=== PATIENT | female | born 1980 | race African-American/Black ===

== ENCOUNTER 2018-12-21 08:22 | Day surgery (SDC) | payer OTHER ==
[~2018-12-21 08:22] MED LIST: FENTANYL CITR 250 MCG/5 ML ONE; LIDOCAINE 2% MPF 5 ML VIAL ONE; MIDAZOLAM HCL 2 MG/2 ML INJ ONE; ONDANSETRON 4 MG/2 ML VIAL ONE; PROPOFOL 200 MG/20 ML VIAL IV ONE; ROCURONIUM 50 MG/5 ML VIAL IV ONE; dexAMETHasone 10 MG/ML VIAL ONE
--- OUTSIDE RECORDS SUMMARY | 2018-12-21 08:29 | XMS REPORT | Clinical Summary ---
:1980 Author Organization [facility] Address [address] [place] [address] Care Team Providers Name Role Phone Mitchel Leggett DO Primary Care Provider Allergies No Known Allergies Medications Medication Sig Dispensed Refills Start Date End Date Status lisinopril-hydrochlor Take 1 tablet 90 tablet 0 09/28/2018 Active othiazide by mouth (PRINZIDE,ZESTORETIC) daily. 10-12.5 mg per tabletIndications: Essential hypertension phentermine 30 MG Take 30 mg by 0 Active capsule mouth every morning. semaglutide (OZEMPIC) Inject 0.25 1.5 mL 0 11/20/2018 Active 0.25 mg or 0.5 mg(2 mg under the mg/1.5 mL) pen skin every 7 injectorIndications: days. BMI 32.0-32.9,adult diclofenac (VOLTAREN) Take one tab 30 tablet 0 11/20/2018 Active 75 MG EC po twice tabletIndications: daily As Sacroiliac joint needed back pain, Dextroscoliosis pain phentermine 37.5 MG Take 45 mg by 0 Discontinued capsule mouth every 8 morning. lisinopril-hydrochlor Take 1 tablet 45 tablet 0 01/19/2018 Discontinued othiazide by mouth 8 (PRINZIDE,ZESTORETIC) daily. 10-12.5 mg per tabletIndications: Uncontrolled hypertension lisinopril-hydrochlor Take 1 tablet 17 tablet 0 03/06/2018 Discontinued othiazide by mouth 8 (PRINZIDE,ZESTORETIC) daily. 10-12.5 mg per tabletIndications: Uncontrolled hypertension ISOtretinoin Take 40 mg by 0 Discontinued (MYORISAN) 40 MG mouth 2 (two) 9 capsule times a day. lisinopril-hydrochlor Take 1 tablet 90 tablet 0 03/23/2018 Discontinued othiazide by mouth 9 (PRINZIDE,ZESTORETIC) daily. 10-12.5 mg per tabletIndications: Essential hypertension fluconazole Take 1 tablet 1 tablet 0 04/23/2018 (DIFLUCAN) 150 MG (150 mg 8 tablet total) by mouth once for 1 dose. metroNIDAZOLE Take 1 tablet 14 tablet 0 04/23/2018 (FLAGYL) 500 MG (500 mg 8 tablet total) by mouth 2 (two) times a day for 7 days. gabapentin Take 1 30 capsule 0 04/24/2018 (NEURONTIN) 300 mg capsule (300 9 capsuleIndications: mg total) by Dextroscoliosis, mouth nightly Sacroiliac joint for 30 days. pain, Muscle spasm diclofenac (VOLTAREN) Take 1 tablet 60 tablet 0 05/22/2018 Discontinued 75 MG EC (75 mg total) 9 tabletIndications: by mouth 2 Dextroscoliosis (two) times a day. lisinopril-hydrochlor Take 1 tablet 90 tablet 0 05/22/2018 Discontinued othiazide by mouth 9 (PRINZIDE,ZESTORETIC) daily. 10-12.5 mg per tabletIndications: Essential hypertension ibuprofen 1 tablet take 0 03/26/2018 Discontinued (ADVIL,MOTRIN) 600 MG as directed. 9 tablet metroNIDAZOLE Take 1 tablet 14 tablet 0 05/31/2018 Discontinued (FLAGYL) 500 MG (500 mg 9 tablet total) by mouth 2 (two) times a day for 7 days. fluconazole Take 1 tablet 1 tablet 6 05/31/2018 Discontinued (DIFLUCAN) 150 MG (150 mg 9 tablet total) by mouth once for 1 dose. fluconazole Take 1 tablet 1 tablet 6 06/20/2018 (DIFLUCAN) 150 MG (150 mg 9 tablet total) by mouth once for 1 dose. metroNIDAZOLE Take 1 tablet 14 tablet 0 06/20/2018 (FLAGYL) 500 MG (500 mg 9 tablet total) by mouth 2 (two) times a day for 7 days. phentermine 15 MG Take 1 30 capsule 0 06/29/2018 Discontinued capsuleIndications: capsule (15 9 BMI 35.0-35.9,adult mg total) by mouth every morning for 30 days. phentermine 15 MG Take 1 30 capsule 0 07/27/2018 Discontinued capsuleIndications: capsule (15 9 BMI 35.0-35.9,adult mg total) by mouth every morning for 30 days. lisinopril-hydrochlor Take 1 tablet 90 tablet 0 08/23/2018 Discontinued othiazide by mouth 9 (PRINZIDE,ZESTORETIC) daily. 10-12.5 mg per tabletIndications: Essential hypertension phentermine 15 MG Take 1 30 capsule 0 08/23/2018 capsuleIndications: capsule (15 9 BMI 33.0-33.9,adult mg total) by mouth every morning for 30 days. phentermine 15 MG Take 15 mg by 0 Discontinued capsule mouth every 9 morning. phentermine 15 MG Take 1 8 capsule 0 09/28/2018 Discontinued capsuleIndications: capsule (15 9 BMI 33.0-33.9,adult mg total) by mouth every morning for 8 days. phentermine 15 MG Take 1 8 capsule 0 09/28/2018 Discontinued capsuleIndications: capsule (15 9 BMI 33.0-33.9,adult mg total) by mouth every morning for 8 days. phentermine 30 MG Take 1 30 capsule 0 10/05/2018 capsuleIndications: capsule (30 9 BMI 32.0-32.9,adult mg total) by mouth every morning for 30 days. metroNIDAZOLE Take 1 tablet 14 tablet 0 10/19/2018 (FLAGYL) 500 MG (500 mg 9 tablet total) by mouth 2 (two) times a day for 7 days. metroNIDAZOLE Take 1 tablet 14 tablet 6 11/07/2018 (FLAGYL) 500 MG (500 mg 9 tabletIndications: total) by Acute vaginitis mouth 2 (two) times a day for 7 days. fluconazole Take 1 tablet 2 tablet 6 11/07/2018 (DIFLUCAN) 150 MG (150 mg 9 tabletIndications: total) by Acute vaginitis mouth once for 1 dose. Hospital, Clinic, or Other Ordered Dose Route Frequency Start Date End Date Status Facility Administered Medication keTOROlac (TORadol) 30 mg IM once 04/24/2018 04/24/2018 Ended injection 30 mgIndications: Sacroiliac joint pain, Muscle spasm keTOROlac (TORadol) 30 mg IM once 06/29/2018 06/29/2018 Ended injection 30 mgIndications: Sacroiliac joint pain keTOROlac (TORadol) 15 mg IM once 08/23/2018 08/23/2018 Ended injection 15 mgIndications: Muscle spasm keTOROlac (TORadol) 30 mg IM once 09/28/2018 09/28/2018 Ended injection 30 mgIndications: Sacroiliac joint pain, Dextroscoliosis keTOROlac (TORadol) 30 mg IM once 10/05/2018 10/05/2018 Ended injection 30 mgIndications: Sacroiliac joint pain keTOROlac (TORadol) 30 mg IM once 11/06/2018 11/06/2018 Ended injection 30 mgIndications: Sacroiliac joint pain, Dextroscoliosis keTOROlac (TORadol) 30 mg IM once 11/20/2018 11/20/2018 Ended injection 30 mgIndications: Sacroiliac joint pain, Dextroscoliosis Active Problems Problem Noted Date Family history of breast cancer 01/01/2018 Menorrhagia with regular cycle 01/01/2018 Stress incontinence of urine 01/01/2018 Acute vaginitis 04/26/2017 Encounters Date Type Specialty Care Team Description 11/20/2018 Office Visit Internal Medicine Mitchel Leggett, Sacroiliac joint pain (Primary Dx); DO Dextroscoliosis; BMI 32.0-32.9,adult 11/07/2018 Office Visit Obstetrics and Julianna Edwards Screen for STD ( sexually transmitted disease) (Primary Dx); Gynecology MD Emeka Dysuria; Acute vaginitis 11/06/2018 Office Visit Internal Medicine Mitchel Leggett, Uncontrolled hypertension (Primary Dx); DO Sacroiliac joint pain; Dextroscoliosis 11/06/2018 Orders Only Obstetrics and Journet, Pain with urination Gynecology TED Dumont (Primary Dx) 10/19/2018 Orders Only Obstetrics and Kassy Singh MD 10/05/2018 Office Visit Internal Medicine Leggett, Mitchel, Sacroiliac joint pain (Primary Dx); DO Essential hypertension; BMI 32.0-32.9,adult 09/28/2018 Office Visit Internal Medicine Leggett, Mitchel, Essential hypertension (Primary Dx); DO Sacroiliac joint pain; Dextroscoliosis; BMI 33.0-33.9,adult 08/23/2018 Office Visit Internal Medicine Leggett, Mitchel, Essential hypertension (Primary Dx); DO Muscle spasm; BMI 33.0-33.9,adult 07/27/2018 Office Visit Internal Medicine Mitchel Leggett, Uncontrolled hypertension (Primary Dx); DO BMI 35.0-35.9,adult 06/29/2018 Office Visit Internal Medicine Leggett, Mitchel, Sacroiliac joint pain (Primary Dx); DO Essential hypertension; BMI 35.0-35.9,adult 06/20/2018 Refill Obstetrics and Jerry, Julianna Gynecology MD Emeka 06/20/2018 Refill Obstetrics and Jerry, Julianna Gynecology MD Emeka 06/05/2018 Telephone Obstetrics and Nestornet, Gynecology Tim, BASE REMOVER 06/01/2018 Telephone Obstetrics and Jour[place], Gynecology Tim, BASE REMOVER 05/31/2018 Office Visit Obstetrics and Julianna Edwards Acute vaginitis ( Primary Dx); Gynecology MD Emeka Screen for STD (sexually transmitted disease) 05/30/2018 Telephone Obstetrics and [place], Gynecology Tim, BASE REMOVER 05/30/2018 Orders Only Obstetrics and Journet, Gynecology Tim, BASE REMOVER 05/22/2018 Office Visit Internal Medicine Mitchel Leggett, Essential hypertension (Primary Dx); DO Dextroscoliosis; Severe depression (HCC); BMI 38.0-38.9,adult 04/24/2018 Office Visit Internal Medicine Mitchel Leggett, Dextroscoliosis ( Primary Dx); DO Sacroiliac joint pain; Muscle spasm 04/23/2018 Orders Only Obstetrics and Julianna Edwards Gynecology MD Emeka 03/23/2018 Office Visit Internal Medicine Mitchel Leggett, Severe depression (HCC) (Primary Dx); DO Grief; Other fatigue; Essential hypertension; BMI 38.0-38.9,adult 03/13/2018 Hospital Radiology Julianna Edwards Family history of breast Encounter MD Emeka cancer 03/06/2018 Refill Internal Medicine Radha Cox MA Uncontrolled hypertension 03/06/2018 Telephone Family Medicine Mitchel Leggett DO 01/19/2018 Office Visit Internal Medicine Mitchel Leggett, LVH (left ventricular hypertrophy) (Primary Dx); DO Uncontrolled hypertension; Severe depression; BMI 39.0-39.9,adult 01/15/2018 Telephone Obstetrics and Caio, Gynecology TED Robert 01/05/2018 Orders Only Obstetrics and Lydia Maher Screen for STD ( sexually transmitted disease) (Primary Dx); Gynecology MD Lali Screening for HIV (human immunodeficiency virus) 01/05/2018 Telephone Obstetrics and Yeni Monique MA 01/01/2018 Office Visit Obstetrics Julianna Bradshaw Well woman exam ( Primary Dx); Gynecology MD Emeka Routine Papanicolaou smear; Encounter for screening for human papillomavirus (HPV); Family history of breast cancer; Menorrhagia with regular cycle; Elevated blood pressure reading; Stress incontinence of urine after 12/20/2017 Family History Medical History Relation Name Comments Stomach cancer Maternal Grandmother Breast cancer Mother Relation Name Status Comments Maternal Grandmother Mother Social History Tobacco Use Types Packs/Day Years Used Date Never Smoker Smokeless Tobacco: Never Used Alcohol Use Drinks/Week oz/Week Comments No Sex Assigned at Date Recorded Not on file Job Start Date Occupation Industry Not on file Not on file Not on file Travel History Travel Start Travel End No recent travel history available. Last Filed Vital Signs Vital Sign Reading Time Taken Blood Pressure 122/87 11/20/2018 12:39 PM CDT Pulse 82 11/20/2018 12:39 PM CDT Temperature - - Respiratory Rate - - Oxygen Saturation - - Inhaled Oxygen Concentration - - Weight 84.8 kg (187 lb) 11/20/2018 12:39 PM CDT Height 162.6 cm (5' 4") 11/20/2018 12:39 PM CDT Body Mass Index 32.1 11/20/2018 12:39 PM CDT Plan of Treatment Date Type Specialty Care Team Description 01/21/2019 Office [place] [address] [address] [address] [place] [address] [phone] Health Maintenance Due Date Last Done Comments INFLUENZA VACCINE 12/06/2018 Procedures Procedure Name Priority Date/Time Associated Diagnosis Comments NUSWAB VAGINITIS PLUS Routine 11/07/2018 12:16 Screen for STD Results for this (VG+) PM CDT (sexually transmitted procedure are in disease) the results section. RPR SCREEN Routine 11/07/2018 10:23 Screen for STD Results for this AM CDT (sexually transmitted procedure are in disease) the results section. HIV 1/2 Routine 11/07/2018 10:23 Screen for STD Results for this ANTIGEN/ANTIBODY, AM CDT (sexually transmitted procedure are in FOURTH GENERATION disease) the results W/RFL section. HEPATITIS C ANTIBODY Routine 11/07/2018 10:23 Screen for STD Results for this AM CDT (sexually transmitted procedure are in disease) the results section. HEPATITIS B SURFACE Routine 11/07/2018 10:23 Screen for STD Results for this ANTIGEN AM CDT (sexually transmitted procedure are in disease) the results section. URINE CULTURE Routine 11/06/2018 2:37 Pain with urination Results for this AM CDT procedure are in the results section. NUSWAB VAGINITIS PLUS Routine 05/31/2018 9:52 Acute vaginitis Results for this (VG+) AM BIOLOGICAL SCIENCE TECHNICIAN procedure are in the results section. HIV 1/2 Routine 05/31/2018 9:49 Screen for STD Results for this ANTIGEN/ANTIBODY, AM BIOLOGICAL SCIENCE TECHNICIAN (sexually transmitted procedure are in FOURTH GENERATION disease) the results W/RFL section. RPR SCREEN Routine 05/31/2018 9:49 Screen for STD Results for this AM BIOLOGICAL SCIENCE TECHNICIAN (sexually transmitted procedure are in disease) the results section. HEPATITIS C ANTIBODY Routine 05/31/2018 9:49 Screen for STD Results for this AM BIOLOGICAL SCIENCE TECHNICIAN (sexually transmitted procedure are in disease) the results section. HEPATITIS B SURFACE Routine 05/31/2018 9:49 Screen for STD Results for this ANTIGEN AM BIOLOGICAL SCIENCE TECHNICIAN (sexually transmitted procedure are in disease) the results section. COMPREHENSIVE Routine 03/23/2018 11:37 Essential hypertension Results for this METABOLIC PANEL W/O AM BIOLOGICAL SCIENCE TECHNICIAN procedure are in EGFR the results section. MAMMO SCREENING W CAD Routine 03/13/2018 1:32 Family history of Results for this BILATERAL PM BIOLOGICAL SCIENCE TECHNICIAN breast cancer procedure are in the results section. VITAMIN B12 LEVEL Routine 01/19/2018 3:13 Severe depression Results for this PM CDT procedure are in the results section. T3 Routine 01/19/2018 3:13 Severe depression Results for this PM CDT procedure are in the results section. TSH+FREE T4 Routine 01/19/2018 3:13 Uncontrolled Results for this PM CDT hypertension procedure are in Severe depression the results section. ECG 12-LEAD Routine 01/19/2018 2:37 Uncontrolled Results for this PM CDT hypertension procedure are in the results section. CHLAMYDIA/GC, WILNER Routine 01/09/2018 1:43 Screen for STD Results for this PM CDT (sexually transmitted procedure are in disease) the results section. TRICHOMONAS Routine 01/09/2018 1:43 Screen for STD Results for this VAGINALIS, WILNER PM CDT (sexually transmitted procedure are in disease) the results section. RPR SCREEN Routine 01/09/2018 1:41 Screen for STD Results for this PM CDT (sexually transmitted procedure are in disease) the results section. HIV 1/2 Routine 01/09/2018 1:41 Screening for HIV Results for this ANTIGEN/ANTIBODY, PM CDT (human immunodeficiency procedure are in FOURTH GENERATION virus) the results W/RFL section. HEPATITIS C ANTIBODY Routine 01/09/2018 1:41 Screen for STD Results for this PM CDT (sexually transmitted procedure are in disease) the results section. HEPATITIS B SURFACE Routine 01/09/2018 1:41 Screen for STD Results for this ANTIGEN PM CDT (sexually transmitted procedure are in disease) the results section. GYNECOLOGIC PAP TEST Routine 01/01/2018 1:40 Results for this (IMAGE-GUIDED), PM CDT procedure are in LIQUID-BASED the results PREPARATION AND HUMAN section. PAPILLOMAVIRUS (HPV) HIGH-RISK DNA DETECTION WITH REFLEX TO HPV GENOTYPES 16 AND 18 PAPIG HPV AGE GDLN Routine 01/01/2018 1:40 Well woman exam Results for this ACOG PM CDT Routine Papanicolaou procedure are in smear the results Encounter for screening section. for human papillomavirus (HPV) LIPID PANEL W/ Routine 01/01/2018 1:37 Well woman exam Results for this CHOL/HDL RATIO PM CDT procedure are in the results section. THYROID STIMULATING Routine 01/01/2018 1:37 Well woman exam Results for this HORMONE PM CDT procedure are in the results section. COMPREHENSIVE Routine 01/01/2018 1:37 Well woman exam Results for this METABOLIC PANEL PM CDT procedure are in the results section. CBC WITH PLATELET AND Routine 01/01/2018 1:37 Well woman exam Results for this DIFFERENTIAL PM CDT procedure are in the results section. after 12/20/2017 Results NuSwab Vaginitis Plus (VG+) (11/07/2018 12:16 PM CDT)Only the most recent of2 resultswithin the time period is included. Atopobium vaginae High - 2 (A) Score [facility] BVAB 2 High - 2 (A) Score [facility] Megasphaera species Low - 0 Score [facility] Comment: Calculate total score by adding the 3 individual bacterial vaginosis (BV) marker scores together.Total score is interpreted as follows: Total score 0-1: Indicates the absence of BV. Total score 2: Indeterminate for BV. Additional clinical data should be evaluated to establish a diagnosis. Total score 3-6: Indicates the presence of BV. This test was developed and its performance characteristics determined by [facility].It has not been cleared or approved by the Food and Drug Administration.The FDA has determined that such clearance or approval is not necessary. Maria Antonia albicans, Negative Negative [facility] WILNER C. glabrata, DNA Negative Negative [facility] Comment: This test was developed and its performance characteristics determined by [facility].It has not been cleared or approved by the Food and Drug Administration.The FDA has determined that such clearance or approval is not necessary. Trichomonas vag by Negative Negative [facility] WILNER Chlamydia Negative Negative [facility] trachomatis, WILNER Neisseria Negative Negative [facility] gonorrhoeae, WILNER Specimen Swab Narrative Performed At Performed at: - [facility] [place], [id number] Health Teacher: Charanjit Dutton MD, Phone:[phone] Performing Organization Address City/State/Zipcode Phone Number [facility] HIV 1/2 ANTIGEN/ANTIBODY, FOURTH GENERATION W/RFL (11/07/2018 10:23 AM CDT)Only the most recent of3 resultswithin the time period is included. HIV AG/AB 4th gen Non Reactive Non Reactive [facility] Specimen Narrative Performed At Performed at: [facility] [place], [id number] Health Teacher: Easton Cagle MD, Phone:[phone] Performing Organization Address City/[facility] Phone Number [facility] Hepatitis C antibody (11/07/2018 10:23 AM CDT)Only the most recent of3 resultswithin the time period is included. [facility] Hepatitis C Ab <0.1 0.0 - 0.9 s/co [facility] Comment: ratio Negative: < 0.8 Indeterminate: 0.8 - 0.9 Positive: > 0.[address] [facility] recommends that a positive HCV antibody result be followed up with a HCV Nucleic Acid Amplification test (113133). Specimen Blood Narrative Performed At Performed at:[address] [place], [place] [id number] Health Teacher: Easton Cagle MD, Phone:[phone] Performing Organization Address [facility] Phone Number [facility] RPR screen (11/07/2018 10:23 AM CDT)Only the most recent of3 resultswithin the time period is included. [facility] RPR Non Reactive Non Reactive [facility] Specimen Blood Narrative Performed At Performed at:[address] [place], [place] [id number] Health Teacher: Easton Cagle MD, Phone:[phone] Performing Organization Address [facility] Phone Number [facility] Hepatitis B surface antigen (11/07/2018 10:23 AM CDT)Only the most recent of3 resultswithin the time period is included. [facility] Hepatitis B surface Ag Negative Negative [facility] Specimen Blood Narrative Performed At Performed at:[address] [place], [place] [id number] Health Teacher: Easton Cagle MD, Phone:[phone] Performing Organization Address [facility] Phone Number [facility] Urine culture (11/06/2018 2:37 AM CDT) [facility] Urine culture Culture shows less than 10,000 colony forming units of bacteria per [facility] milliliter of urine. This colony count is not generally considered to be clinically significant. Specimen Urine Narrative Performed At Performed at:[address] [place] [address] [place], [id number] Health Teacher: Easton Cagle MD, Phone:[phone] Performing Organization Address [facility]/Zipcode Phone Number [facility] COMPREHENSIVE METABOLIC PANEL W/O eGFR (03/23/2018 11:37 AM BIOLOGICAL SCIENCE TECHNICIAN) Glucose 78 65 - 139 [facility] Comment: mg/dL [place] Non-fasting reference interval BUN, whole blood 13 7 - 25 mg/dL [facility] [place] Creatinine 0.90 0.50 - 1.10 [facility] mg/dL [facility] BUN/creatinine NOT APPLICABLE 6 - 22 [facility] ratio (calc) [facility] Sodium 137 135 - 146 [facility] mmol/L [facility] Potassium 4.4 3.5 - 5.3 [facility] mmol/L [facility] Chloride 102 98 - 110 [facility] mmol/L [place] CO2 28 20 - 32 [facility] mmol/L [facility] Calcium 9.6 8.6 - 10.2 [facility] mg/dL [place] Protein 7.8 6.1 - 8.1 [facility] g/dL [place] Albumin, S 4.5 3.6 - 5.1 [facility] g/dL [place] Globulin, total 3.3 1.9 - 3.7 [facility] g/dL (calc) [facility] Albumin/globulin 1.4 1.0 - 2.5 [facility] ratio (calc) [facility] Total bilirubin 0.3 0.2 - 1.2 [facility] mg/dL [place] Alkaline 63 33 - 115 U/L [facility] phosphatase [facility] AST 14 10 - 30 U/L [facility] [place] ALT 13 6 - 29 U/L [facility] [place] Specimen Blood Narrative Performed At FASTING:NO [facility] FASTING: NO Resulting Agency Comment Performing Organization Information: Site ID: [id number] Name: [employer] Address: [address] [place] [id number] Director: Janet Sewell Performing Organization Address [facility]/Zipcode Phone Number [employer] [address] [address] Mammo Screening w Cad Bilateral (03/13/2018 1:32 PM BIOLOGICAL SCIENCE TECHNICIAN) Specimen Narrative Performed At PROCEDURE:MAMMO SCREENING W CAD BILATERAL [facility] COMPARISON: NONE. Baseline HISTORY: 37-year-old female presents for baseline screening mammogram. Patient's mother diagnosed with breast cancer at the age of 53. FINDINGS: There are scattered areas of fibroglandular density. No masses or malignant calcifications are identified. Computed aided detection (CAD) is used. IMPRESSION: No specific mammographic evidence of malignancy. RECOMMENDATION: Next screening mammogram is recommended in one year. BI-RADS 1: Negative This facility is accredited by [employer] for Mammography. A negative x-ray report should not delay biopsy if a dominant or clinically suspicious mass is present. Not all cancers are identified by x-ray.Should you note any changes during your monthly breast self-examination, please notify your doctor.In addition to the above, we recommend you have a breast examination by your healthcare provider every year. [id number] Performing Organization Address City/[facility]/Zipcode Phone Number [facility] [address] [place] [address] TSH+Free T4 (01/19/2018 3:13 PM CDT) TSH 1.990 0.450 - 4.500 uIU/mL [facility] T4, free 1.24 0.82 - 1.77 ng/dL [facility] Specimen Blood Narrative Performed At Performed at:[address] [place] [address] [facility] [address] [place], [place] [id number] Health Teacher: Easton Cagle MD, Phone:[phone] Performing Organization Address [facility] Phone Number [facility] T3 (01/19/2018 3:13 PM CDT) T3 122 71 - 180 ng/dL [facility] Specimen Blood Narrative Performed At Performed at:[address] [place], [place] [id number] Health Teacher: Easton Cagle MD, Phone:[phone] Performing Organization Address [facility] Phone Number [facility] Vitamin B12 level (01/19/2018 3:13 PM CDT) Vitamin B12 643 232 - 1,245 pg/mL [facility] Specimen Blood Narrative Performed At Performed at:[address] [place], [place] [id number] Health Teacher: Easton Cagle MD, Phone:[phone] Performing Organization Address [facility] Phone Number [facility] ECG 12 lead (01/19/2018 2:37 PM CDT) Ventricular rate 77 [facility] Atrial rate 77 [facility] RI interval 162 [facility] QRSD interval 80 [facility] QT interval 398 [facility] QTC interval 450 [facility] P axis 1 43 [facility] QRS axis 1 72 [facility] T wave axis 31 [facility] EKG impression Normal sinus [facility] rhythm-Minimal voltage criteria for LVH, may be normal variant-Nonspecific T wave abnormality-Abnormal ECG-No previous ECGs available-Electronicall y Signed By Betsey SUMMERSUniversity [facility] ([id number]) on 01/19/2018 5:30:26 PM Specimen Performing Organization Address [facility] Phone Number [facility] [address] [address] [place] [address] Trichomonas vaginalis, WILNER (01/09/2018 1:43 PM CDT) Pathologist [facility], [facility] Trichomonas vag by WILNER Negative Negative [facility] Specimen Urine Narrative Performed At Performed at:[facility] [address] [place], [id number] Health Teacher: Veronica Ospina MD, Phone:[phone] Performing Organization Address [facility] Phone Number [facility] Chlamydia/GC, WILNER (01/09/2018 1:43 PM CDT) Pathologist [facility] Chlamydia trachomatis, WILNER Negative Negative [facility] Neisseria gonorrhoeae, WILNER Negative Negative [facility] Specimen Urine Narrative Performed At Performed at:[facility] [address] [place], [id number] Health Teacher: Veronica Ospina MD, Phone:[phone] Performing Organization Address [facility] Phone Number [facility] Gynecologic Pap Test (Image-guided), Liquid-based Preparation and Human Papillomavirus (HPV) High-risk DNA Detection With Reflex to HPV Genotypes 16 and 18 (01/01/2018 1:40 PM CDT) Diagnosis CommentComment: NEGATIVE [facility] 02 FOR INTRAEPITHELIAL LESION AND MALIGNANCY. Specimen adequacy Comment [facility] 02 Comment: Satisfactory for evaluation.No endocervical component is identified. The absence of an endocervical component was confirmed by an additional screening evaluation. Clinician provided Comment [facility] 02 ICD10 Comment: Z01.419 Z12.4 Z11.51 Performed by: Comment [facility] 02 Comment: Kendal Kulkarni, Supervisory Record Searcher ([facility]) Reviewed at: [address] [id number] QC reviewed by: CommentComment: [facility] 02 [place], Record Searcher ([facility]) Comment . [facility] 02 Note: Comment [facility] 02 Comment: The Pap smear is a screening test designed to aid in the detection of premalignant and malignant conditions of the uterine cervix.It is not a diagnostic procedure and should not be used as the sole means of detecting cervical cancer.Both false-positive and false-negative reports do occur. Test methodology Comment [facility] 02 Comment: This liquid based ThinPrep(R) pap test was screened with the use of an image guided system. HPV, high-risk Negative Negative [facility] Comment: This high-risk HPV test detects thirteen high-risk types (16/18/31/33/35/39/45/51/52/56/58/59/68) without differentiation. Specimen Narrative Performed At Performed at: - [id number] Health Teacher: Tamara Shine MD, Phone:[phone] Performed at: - [id number] Health Teacher: Tamaar Shine MD, Phone:[phone] Performing Organization Address [facility] Phone Number [facility] 02 PapIG HPV Age Gdln ACOG (01/01/2018 1:40 PM CDT) Age GDLN ACOG testing 30-65 [facility] Specimen Swab Narrative Performed At Performed at: - [id number] Health Teacher: Tamara Shine MD, Phone:[phone] Specimen Comment: Source.............Cervix Specimen Comment: No. of containers..01 ThinPrep Vial Performing Organization Address [facility] Phone Number [facility] Lipid Panel w/ Chol/HDL Ratio (01/01/2018 1:37 PM CDT) Pathologist [facility] Cholesterol 165 100 - 199 [facility] mg/dL Triglycerides 74 0 - 149 mg/dL [facility] HDL cholesterol 50 >39 mg/dL [facility] VLDL cholesterol belen 15 5 - 40 mg/dL [facility] LDL cholesterol 100 (H) 0 - 99 mg/dL [facility] calculated Cholesterol/HDL ratio 3.3 0.0 - 4.4 [facility] Comment: ratio T. Chol/ HDL Ratio MenWomen 1/2 Avg.Risk 3.43.3 Avg.Risk 5.04.4 2X Avg.Risk 9.67.1 3X Avg.Risk 23.4 11.0 Specimen Blood Narrative Performed At Performed at:01 [facility] [address] [place], [id number] Health Teacher: Easton Cagle MD, Phone:[phone] Performing Organization Address City/State/Zipcode Phone Number [facility] CBC with platelet and differential (01/01/2018 1:37 PM CDT) [facility] WBC 5.5 3.4 - 10.8 x10E3/uL [facility] RBC 4.58 3.77 - 5.28 [facility] x10E6/uL HGB 11.6 11.1 - 15.9 g/dL [facility] HCT 35.8 34.0 - 46.6 % [facility] MCV 78 (L) 79 - 97 fL [facility] MCH 25.3 (L) 26.6 - 33.0 pg [facility] MCHC 32.4 31.5 - 35.7 g/dL [facility] RDW 16.0 (H) 12.3 - 15.4 % [facility] Platelet count 331 150 - 379 x10E3/uL [facility] Neutrophils 41 Not Estab. % [facility] Lymphocytes 50 Not Estab. % [facility] Monocytes 5 Not Estab. % [facility] Eosinophils 3 Not Estab. % [facility] Basophils 1 Not Estab. % [facility] Neutrophils, absolute 2.3 1.4 - 7.0 x10E3/uL [facility] Lymphocytes, absolute 2.8 0.7 - 3.1 x10E3/uL [facility] Monocytes, absolute 0.3 0.1 - 0.9 x10E3/uL [facility] Eosinophils, absolute 0.2 0.0 - 0.4 x10E3/uL [facility] Basophils, absolute 0.0 0.0 - 0.2 x10E3/uL [facility] Immature granulocytes 0 Not Estab. % [facility] Immature grans (abs) 0.0 0.0 - 0.1 x10E3/uL [facility] Specimen Blood Narrative Performed At Performed at:01 [id number] Health Teacher: Easton Cagle MD, Phone:[phone] Performing Organization Address [facility] Phone Number [facility] Thyroid stimulating hormone (01/01/2018 1:37 PM CDT) Pathologist [facility] TSH 2.580 0.450 - 4.500 uIU/mL [facility] Specimen Blood Narrative Performed At Performed at: [id number] Health Teacher: Easton Cagle MD, Phone:[phone] Performing Organization Address [facility] Phone Number [facility] Comprehensive metabolic panel (01/01/2018 1:37 PM CDT) Pathologist [facility] Glucose 88 65 - 99 mg/dL [facility] BUN, whole blood 11 6 - 20 mg/dL [facility] Creatinine 0.87 0.57 - 1.00 mg/dL [facility] EGFR Non-Afr. Polish 86 >59 mL/min/1.73 [facility] EGFR 99 >59 mL/min/1.73 [facility] BUN/creatinine ratio 13 9 - 23 [facility] Sodium 139 134 - 144 mmol/L [facility] Potassium 4.4 3.5 - 5.2 mmol/L [facility] Chloride 99 96 - 106 mmol/L [facility] CO2 23 20 - 29 mmol/L [facility] Calcium 9.3 8.7 - 10.2 mg/dL [facility] Protein 7.3 6.0 - 8.5 g/dL [facility] Albumin, S 4.6 3.5 - 5.5 g/dL [facility] Globulin, total 2.7 1.5 - 4.5 g/dL [facility] Albumin/globulin ratio 1.7 1.2 - 2.2 [facility] Total bilirubin <0.2 0.0 - 1.2 mg/dL [facility] Alkaline phosphatase 70 39 - 117 IU/L [facility] AST 14 0 - 40 IU/L [facility] ALT 16 0 - 32 IU/L [facility] Specimen Blood Narrative Performed At Performed at:01 - [facility] [address] [place], [id number] Health Teacher: Easton Cagle MD, Phone:[phone] Performing Organization Address City/State/Zipcode Phone Number [facility] after 12/20/2017 Advance Directives Patient has advance care planning documents on file. For more information, please contact:[place] [address]
[2018-12-21 08:34] LABS: Specific Gravity 1.015 (1.005-1.030)
[2018-12-21] MEDS ORDERED: GENTAMICIN SULF 80 MG/2ML INJ ONE (08:48)
[2018-12-21] MEDS ORDERED: CEFAZOLIN SODIUM 1 GM/VIAL ONE (08:48)
[2018-12-21] MEDS ORDERED: NS 0.9% VIAL 20 ML ONE (08:48)
[2018-12-21] MEDS ORDERED: Mastisol Adhesive Liq ONE (08:49)
[2018-12-21] MEDS ORDERED: SCOPOLAMINE HYDROBROMIDE PATCH TD ONE (08:49)
[2018-12-21] MEDS ORDERED: CEFAZOLIN/SWI 1gm 1 GM/10 ML SYR ONE (08:49)
[2018-12-21] MEDS ORDERED: Ringers Lactate 1,000 ML IV ONE ×3 (08:49→08:50)
[2018-12-21] MEDS ORDERED: BACITRACIN 50000 UNIT VIAL ONE (08:49)
[2018-12-21] MEDS ORDERED: FENTANYL CITR 250 MCG/5 ML ONE (11:20)
[2018-12-21] MEDS ORDERED: Phenylephrine HCl 10 MG/ML 1 ML VIAL ONE (11:37)
[2018-12-21] MEDS ORDERED: KETOROLAC 30 MG/ML INJ ONE (13:41)
[2018-12-21] MEDS: HYDROMORPHONE HCL 1 MG/ML INJ ONE ×4 (14:37→14:54)
[2018-12-21] MEDS ORDERED: CODEINE 30MG/APAP 300MG TAB ONE (15:28)
--- NOTE | 2018-12-21 22:31 | OP ---
Surgeon: Dain Corona MD Preoperative Diagnosis: Breast descent. Postoperative Diagnosis: Breast descent. Procedure Performed: Breast lift. Anesthesia: General. Description Of Procedure: After satisfactory induction of general anesthesia, the chest was prepped with DuraPrep and dry sterile drapes applied in the usual manner. The right breast was approached fi rst. A 50 mm template was used to outline the right and then left areolas. Then, incision was made around the areola and transverse incision was made and curvilinear inferior incision. Area of skin w as de-epithelialized with the dermabrader or EpiCut. Dissection was proceeded down on the cephalad i ncision and flap thickness was 1.2. Flap was elevated towards the sternum, clavicle, and anterior ax illary line. The flap was then rotated into a cone after the inferior incision was made. The cone w as formed with 2-0 PDS suture. Straps were elevated at 12 o'clock, 1:30, and 3 o'clock positions fro m the base of the cone. The straps were then woven in and out of the pectoralis major muscle back to the base of the cone, back to pectoralis major muscle, and back to the base of the cone to be tied t o themselves with 2 0 PDS. This was done for the 12 o'clock and 1:30 straps. The 3 o'clock strap wa s sewn over the sternum with 2-0 Ethibond. Left side was done in mirror image manner. Patient then had a sat up after wounds were stapled closed temporarily. Excess skin with dog-ears laterally were excised. Patient returned supine and then the wound was closed. After a 10 AC drain was brought out the axilla and sewn in place with 2-0 silk. Later, closure consisted of 3-0 Vicryl subcu, 3-0 PDS w ith running subcuticular tied in the vertical meridian of each breast. Patient was sat up. Site for new nipple-areolar complex was marked out. The tissue was cored out. Nipples delivered using a 5 c m template, closed with interrupted 4-0 PDS followed by 4-0 PDS in a running subcuticular. Dressings of tincture of benzoin, Steri-Strips, 5 x 5's, fluffs, and Yvon wrap. Patient tolerated the procedur e well. Amount of tissue removed from the right breast was 40 g, left breast was 22 g. DEBBI/JANICE Voice ID: [id number] Report ID: [id number]
== END 2018-12-21 16:30 | disposition home or self-care (01) ==
LOC: OR 08:22
PROVIDERS: ATTEND Specialist
PROC: 0H0V0ZZ Alteration of Bilateral Breast, Open Approach (ICD-10-PCS; principal; 2018-12-21 09:00)
DX: N64.81 Ptosis of breast (principal)
CPT/HCPCS: 81025; 88305; 19316; J2704; J2370; J1580; J2250; J3010 ×2; J1100; J1170 ×2; J0690 ×2; J2405